=== PATIENT | female | born 1960 | race Caucasian/White ===

== ENCOUNTER 2024-05-09 16:49 | Emergency (ER) | payer OTHER, SELFPAY ==
[2024-05-09 17:11] VITALS: BP 146/82
--- NOTE | 2024-05-09 17:15 | ED.GENMED ---
ED Provider Triage
<Curtis Oleary PA-C - Last Filed: 05/09/24 17:16>
-
Patient seen by provider in Triage?: Seen in Triage
Attestation: A medical screening examination has been initiated by a qualified medical provider. Based on the assessment performed at this time, it has been determined that an emergent medical condition may exist and the patient has been informed
that further medical evaluation and possible additional diagnostic testing may be needed.
HPI: 63-year-old female fairly healthy presents with onset of substernal chest pain this morning has been constant but coming and going in severity. Occasionally radiates straight through to the back. 5 pleuritic in nature. She is not short of
breath. EKG obtained through triage shows sinus rhythm without ischemic changes
Consider CAD versus reflux versus pancreatitis. Troponin CBC lipase chest x-ray pending
GENERAL: Alert , in no apparent distress
EYE: No visual abnormalities.
NECK: Trachea midline
ENT: No visible abnormalities.
LUNGS: No acute respiratory distress
NEUROLOGICAL: Alert and oriented
SKIN: Skin intact. No visible changes.
MUSCULOSKELETAL: Moving extremities normally
PSYCH: Normal and appropriate interaction.
This is a medical evaluation conducted in person to initiate diagnostic evaluation and provide initial therapeutics. Please see further documentation by the treating clinician.
History of Present Illness
<Curtis Oleary PA-C - Last Filed: 05/09/24 17:16>
General
Chief Complaint: Chest Pain
Time Seen by Provider: 05/09/24 20:42
<Tyrese Huang DO - Last Filed: 05/09/24 22:41>
History of Present Illness
History of Present Illness:
TIME OF INITIAL ENCOUNTER: 8:45 PM
HPI: The patient presents with chest discomfort without any shortness of breath. She points to a relatively small area in the central lower chest. She has no exertional symptoms. She has she was able to work out using her stationary bike this
morning and had no symptoms at that time. Afterward, she had constant symptoms. She had symptoms for approximately 9 hours before the initial troponin was drawn. The pain has not worsened since that time but persists. She had some intermittently
recurring upper back pain earlier but currently has resolved. She denies history of high blood pressure, high cholesterol, diabetes, never smoked, but states that her mother suddenly at the age of 72 however she had several other comorbidities.
EXAM:
GENERAL: Well appearing in no distress
HEENT: Moist oral mucosa
CARDIOVASCULAR: No murmurs, normal heart rate, regular rhythm, palpate the lower sternal region near the xiphoid, she states that actually clearly makes it feel better
PULMONARY: No respiratory distress, breath sounds are clear and equal
ABDOMEN: Soft with no peritoneal signs, no tenderness
NEUROLOGIC: Excellent strength all extremities, no coordination deficits
PSYCHIATRIC: Appropriate mental status, normal insight and judgement
EXTREMITIES: Nontender, no edema, moves all extremities equally
SKIN: No rash, no lesions
NUMBER AND COMPLEXITY OF PROBLEMS ADDRESSED AT THE ENCOUNTER
� Chronic conditions affecting care: No significant past medical history including no significant cardiac risk factors
� Acute Exacerbation and/or Progression of Chronic Illness: This is an acute problem
� Differential Diagnosis includes: Chest wall pain, anxiety, low suspicion for ACS
AMOUNT AND/OR COMPLEXITY OF DATA TO BE REVIEWED AND ANALYZED
� I performed an independent evaluation of and my interpretation is:
EKG: EKG #1: Sinus 71, no acute ST abnormality, incomplete right bundle branch block. EKG #2 at 857 PM: Sinus 73, no acute ST abnormality
CT:
X-rays: Chest x-ray shows no acute abnormality
Laboratory Studies: CBC and chemistries unremarkable, total bili minimally elevated 1.4, troponin less than 0.012, lipase normal
Other:
� Review of other/old records: I reviewed old records, the patient had a left total hip arthroplasty in 2019
� Clinical information was obtained by an independent historian: None needed
� Prescriptions/Medications Considered but not given:
� Further testing considered but not performed: Considered second troponin however the patient's initial troponin was drawn after 9 hours of ongoing symptoms and symptoms have not worsened. I did offer a second troponin however
the patient declines.
RISK OF COMPLICATIONS AND/OR MORBIDITY OR MORTALITY OF PATIENT MANAGEMENT
� Social determinants of health affecting care: Lives at home
� Discussion with other providers:
� Escalation of care including admission/observation vs risk of discharge considered: Check a second EKG given the ongoing symptoms however the patient has no ST changes on second EKG. I still want her to follow-up with
cardiology as an outpatient. Overall she felt improved after she puts hand pressure on the affected area.
ANY OTHER UPDATES:
The patient had the same constant pain throughout the day in the lower chest at a relatively small area. The pain improves when she pushes on it. Troponin was obtained after 9 hours of symptoms and the symptoms have not been worsening. She
appears comfortable. She is to follow-up cardiology as well.
Phy Exam
<Tyrese Huang DO - Last Filed: 05/09/24 22:41>
Physical Exam
Physical Exam:
See HPI
Scores
<Tyrese Huang DO - Last Filed: 05/09/24 22:41>
Heart Score for Chest Pain Patients
STEMI patient?: Not applicable
Course
<Curtis Oleary PA-C - Last Filed: 05/09/24 17:16>
Orders/Labs/Results
Orders:
Orders
05/09/24 16:51
EKG [Electrocardiogram (*1)] Urgent
Reason for Study: Chest Pain
EKG- Treatment ONCE
05/09/24 17:14
CR Chest - 2 Views Urgent
Comment:
Reason For Exam: chest pain
05/09/24 17:27
Complete Blood Count/With Diff Urgent
Comprehensive Metabolic Panel Urgent
Lipase Urgent
Troponin I Urgent
05/09/24 20:57
Electrocardiogram (*1) Urgent
Reason for Study: Chest Pain
EKG- Treatment ONCE
Abnormal Lab Results
05/09/24
17:27
RBC 4.08 L 10^6/uL
(4.20-5.40)
MCH 32.1 H pg
(27.0-31.0)
Lymphocytes % 19.2 L %
(20.5-51.1)
BUN 21 H mg/dl
(7-17)
Glucose 110 H mg/dl
(70-99)
Total Bilirubin 1.4 H mg/dl
(0.2-1.3)
05/09/24 17:27
05/09/24 17:27
Vital Signs
Initial and Last Documented VS:
Initial Vital Signs
Temp Pulse Resp BP Pulse Ox
36.8 C 70 16 146/82 100
05/09/24 17:11 05/09/24 17:11 05/09/24 17:11 05/09/24 17:11 05/09/24 17:11
Last Documented Vital Signs
Temp Pulse Resp BP Pulse Ox
36.6 C 88 18 120/74 99
05/09/24 20:16 05/09/24 21:21 05/09/24 21:21 05/09/24 21:21 05/09/24 21:21
<Tyrese Huang, DO - Last Filed: 05/09/24 22:41>
Orders/Labs/Results
Orders:
Orders
05/09/24 16:51
EKG [Electrocardiogram (*1)] Urgent
Reason for Study: Chest Pain
EKG- Treatment ONCE
05/09/24 17:14
CR Chest - 2 Views Urgent
Comment:
Reason For Exam: chest pain
05/09/24 17:27
Complete Blood Count/With Diff Urgent
Comprehensive Metabolic Panel Urgent
Lipase Urgent
Troponin I Urgent
05/09/24 20:57
Electrocardiogram (*1) Urgent
Reason for Study: Chest Pain
EKG- Treatment ONCE
Abnormal Lab Results
05/09/24
17:27
RBC 4.08 L 10^6/uL
(4.20-5.40)
MCH 32.1 H pg
(27.0-31.0)
Lymphocytes % 19.2 L %
(20.5-51.1)
BUN 21 H mg/dl
(7-17)
Glucose 110 H mg/dl
(70-99)
Total Bilirubin 1.4 H mg/dl
(0.2-1.3)
05/09/24 17:27
05/09/24 17:27
Vital Signs
Initial and Last Documented VS:
Initial Vital Signs
Temp Pulse Resp BP Pulse Ox
36.8 C 70 16 146/82 100
05/09/24 17:11 05/09/24 17:11 05/09/24 17:11 05/09/24 17:11 05/09/24 17:11
Last Documented Vital Signs
Temp Pulse Resp BP Pulse Ox
36.6 C 88 18 120/74 99
05/09/24 20:16 05/09/24 21:21 05/09/24 21:21 05/09/24 21:21 05/09/24 21:21
Denislt;Tyrese Huang DO - Last Filed: 05/09/24 22:41>
*Critical Care Note
Total Time (30-74mins, 75-104mins- exclusive of procedures): Not Applicable
ED Attending Note
<Curtis Oleary PA-C - Last Filed: 05/09/24 17:16>
-
Portions of this chart may have been created with voice recognition software.� Occasional wrong word or��sound alike� substitutions may have occurred due to the inherent limitations of voice recognition software.
Discharge Plan
Departure
Patient Disposition: Home (Routine Discharge)
Date of Disposition: 05/09/24
Time of Disposition: 21:04
Patient with high blood pressure during this ER visit?: Yes
Discharge Problem:
Chest pain
Instructions: Chest Pain CBC Follow Up
Prescriptions:
No Action
Nasal [place] - Over The Counter
1 spray inhalation BID
celecoxib 200 MG capsule
200 mg PO DAILY 0RF
sennosides [senna] 1 TABLET tablet
1 tab PO HS 0RF
acetaminophen 325 MG tablet
650 mg PO Q4HPRN PRN (Reason: mild pain) 0RF
aspirin 325 MG tablet
325 mg PO DAILY 0RF
ondansetron HCl 4 MG tablet
4 mg PO Q8HPRN PRN (Reason: nausea) 0RF
docusate sodium 100 MG capsule
100 mg PO BID 0RF
mupirocin 1 APPLIC ointment
1 applic intranasal BID 0RF
oxycodone 5 MG tablet
5 mg PO Q4HPRN PRN (Reason: pain) 0RF
Referrals:
Sadie Saucedo DO [Family Provider] -
Emmett Montenegro MD [Active] - Follow up in 2-3 days
Activity Restrictions/Additional Instructions:
The cause of your symptoms is unclear. 2 EKGs show no sign of heart attack. The cardiac blood work shows no sign of heart attack. However it is still your symptoms could be related to a cardiac etiology therefore I recommend you follow with a
asset management lead such as Dr. Montenegro.
Interventions
Interventions:
*Risk Screen - Suicide Last Done: 05/09/24 17:11
*General Assessment Last Done: 05/09/24 17:11
*Neglect/Abuse Screening Last Done: 05/09/24 17:11
*ED COVID-19 Vaccine History Last Done: 05/09/24 17:11
*Nursing Disposition Last Done: 05/09/24 21:21
ED- Cardiac Assessment Last Done: 05/09/24 20:38
Discharge Date and Time
Discharge Date/Time: 05/09/24 21:22
Print Language: ARABIC
[2024-05-09 17:41] LABS: % Basophils 0.7 % (0-2); % Eosinophils 3.1 % (0-6); % Immature Granulocytes 0.1 % (0-0.5); % Lymphocytes 19.2 % (20.5-51.1); % Monocytes 7.9 % (1.7-9.3); Absolute Basophils 0.1 10^3/uL (0-0.2); Absolute Eosinophils 0.2 10^3/uL (0-0.7); Absolute Lymphocytes 1.4 10^3/uL (1.2-3.4); Absolute Monocytes 0.6 10^3/uL (0.1-0.6); Absolute Neutrophils 5.1 10^3/uL (1.4-6.5); Hematocrit 38.5 % (37.0-47.0); Hemoglobin 13.1 g/dL (12.0-16.0); Mean Corpuscular Hgb 32.1 pg (27.0-31.0); Mean Corpuscular Volume 94.4 fL (81.0-99.0); Mean Platelet Volume 8.2 fL (7.4-10.4); Nucleated Red Blood Cells % 0 %; Platelet Count 268 10^3/uL (130-400); Red Blood Cell Count 4.08 10^6/uL (4.20-5.40); Red Cell Dist. Width 12.1 % (11.5-14.5); White Blood Cell Count 7.4 10^3/uL (4.8-10.8)
[2024-05-09 17:58] LABS: ALT (SGPT) 16 U/L (0-35); AST (SGOT) 24 U/L (14-36); Albumin 4.9 g/dl (3.5-5.0); Alkaline Phosphatase 96 U/L (38-126); Blood Urea Nitrogen 21 mg/dl (7-17); Calcium 9.7 mg/dl (8.4-10.2); Carbon Dioxide 26 mmol/L (22-30); Chloride 101 mmol/L (98-107); Glucose 110 mg/dl (70-99); Potassium 4.6 mmol/L (3.5-5.1); Sodium 137 mmol/L (135-145); Total Bilirubin 1.4 mg/dl (0.2-1.3); Total Protein 7.2 g/dl (6.3-8.2); eGFR > 60.00
[2024-05-09 18:03] LABS: Troponin I < 0.012 ng/ml
[2024-05-09 18:10] LABS: Lipase 207 U/L (23-300)
[2024-05-09 20:16] VITALS: BP 140/84
[2024-05-09 21:10] VITALS: BP 120/72
[2024-05-09 21:21] VITALS: BP 120/74
== END 2024-05-09 21:22 | disposition home or self-care (01) ==
LOC: EMR 16:49
PROVIDERS: Physician Assistant; EMERGENCY PHYSICIAN Emergency Medicine; FAMILY PHYSICIAN Family Medicine
DX: R07.89 Other chest pain (principal)
CPT/HCPCS: 99283; 71046; 80053; 83690; 84484; 85025; 93005